=== PATIENT | female | born 1970 | race Caucasian/White ===

== ENCOUNTER → 2017-01-29 | Outpatient (CLI) | payer OTHER ==
[~2017-01-29] MED LIST: ATROPINE 1100 DROP/5 LEFT EYE; DUREZOL 0.100 DROP/5 LEFT EYE; HYDROCHLOROTHIA25 MG PO; JUNEL1 EACH PO; LISINOPRIL20 MG PO; VALTREX50 MG/ML PO; VIGAMOX 0.60 DROP/3 LEFT EYE
== END | disposition home or self-care (01) ==
LOC: AMB 14:52
DX: H44.002 Unspecified purulent endophthalmitis, left eye (principal)
CPT/HCPCS: 87205; 87799 90; J0713; J1100; J3370